=== PATIENT | male | born 1985 | race Caucasian/White ===

== ENCOUNTER 2016-10-12 13:07 | Emergency (ER) | payer OTHER ==
--- NOTE | 2016-10-12 13:12 | EDPHY ---
H & P Time Seen by Provider: 10/12/16 13:10 HPI/ROS: CHIEF COMPLAINT: Esophageal meat impaction HISTORY OF PRESENT ILLNESS: The patient presents to the ED with a esophageal meat impaction. The patient was eating chicken earlier today when he developed a foreign body sensation and regurgitation of saliva. The patient has a history of eosinophilic esophagitis resulting in impaction 2 years ago. The patient was treated as an outpatient with dilatation by [facility]. The patient denies hematemesis or melena. He denies additional symptoms. The patient is having moderate upper esophageal discomfort. REVIEW OF SYSTEMS: A comprehensive 10 point review of systems is otherwise negative aside from elements mentioned in the history of present illness. Source: Patient - Medical/Surgical History Other PMH: Past medical history: Eosinophilic esophagitis with stricture - Family History Significant Family History: No pertinent family hx - Social History Smoking Status: Never smoked - Physical Exam Exam: General Appearance: Alert, no distress ENT, Mouth: Mucous membranes moist, no trismus Respiratory: There are no retractions, lungs are clear to auscultation Cardiovascular: Regular rate and rhythm Gastrointestinal: Abdomen is soft and nontender, no masses, bowel sounds normal Constitutional: Initial Vital Signs Temperature (C) 36.4 C 10/12/16 13:11 Heart Rate 91 10/12/16 13:11 Respiratory Rate 16 10/12/16 13:11 Blood Pressure 143/87 H 10/12/16 13:11 O2 Sat (%) 94 10/12/16 13:11 O2 Delivery Mode Room Air Medical Decision Making ED Course/Re-evaluation: The patient had an IV established. He received a L of normal saline. He received 1 mg of IV Ativan. Consultation was made with the on-call shoe coverer for [facility]. Updated 2:00 p.m.: The patient has passed his esophageal foreign body spontaneously. I have notified Gastroenterology of this. The patient no longer requires emergent endoscopic evaluation. The patient will be discharged home with customary aftercare instructions. The patient will follow up with [facility] for further evaluation of his esophageal strictures an outpatient. Differential Diagnosis: Differential diagnosis considered includes esophageal meat impaction, esophageal stricture, esophagitis - Data Points Medications Given: Discontinued Medications Sodium Chloride (Ns) 1,000 mls @ 0 mls/hr IV EDNOW ONE; Wide Open PRN Reason: Protocol Stop: 10/12/16 13:17 Last Admin: 10/12/16 13:23 Dose: 1,000 mls Lorazepam (Ativan Injection) 1 mg IVP EDNOW ONE Stop: 10/12/16 13:17 Last Admin: 10/12/16 13:23 Dose: 1 mg Departure - Departure Disposition: Home, Routine, Self-Care Clinical Impression: Esophageal stricture Condition: Good Instructions: Esophageal Stricture (ED) Additional Instructions: 1. Please return to the ED for recurrent esophageal foreign body. 2. Please follow up with a shoe coverer you have been referred to for further evaluation of your stricture. Referrals: Chet Fox MD [Medical Doctor] - As per Instructions
[2016-10-12 13:13] VITALS: RESP 16
[2016-10-12] MEDS ORDERED: NS 1,000 ML IV ONE (13:16)
[2016-10-12] MEDS ORDERED: LORazepam 2 MG/ML INJ IVP ONE (13:16)
[2016-10-12 14:21] VITALS: BP 123/71; PULSE 64; TEMP 98.4; O2SAT 96
== END 2016-10-12 14:20 | disposition home or self-care (01) ==
DX: K22.2 Esophageal obstruction (principal); E86.9 Volume depletion, unspecified
CPT/HCPCS: 96374; J2060